=== PATIENT | female | born 1955 | race Caucasian/White ===

== ENCOUNTER → 2016-12-07 | Outpatient (CLI) | payer OTHER ==
[~2016-12-07] MED LIST: AUGMENTIN 875-875 MG PO; BP PILL; CORTISPORIN SUS10 ML OT; LUNESTA3 M1 PO; MOBIC7.5 MG PO; NEURONTIN300 MG PO; PAXIL40 M1 PO; PRILOSEC20 M1 PO; ZOFRAN4 MG PO
== END | disposition home or self-care (01) ==
LOC: MRI 09:37
DX: I99.8 Other disorder of circulatory system (principal)

== ENCOUNTER 2017-12-12 14:26 | Emergency (ER) | payer OTHER ==
[~2017-12-12] VITALS: Ht 152.4 cm; Wt 71.7 kg
[2017-12-12 14:59] LABS: BASO # 0.1 10*3/uL (0.0-0.1); BASO % 0.6 % (0.0-1.0); EOS # 0.1 10*3/uL (0.0-0.4); HEMATOCRIT 38.6 % (37.0-47.0); HEMOGLOBIN 13.2 g/dl (12.0-16.0); LYMPH # 2.2 10*3/uL (1.3-4.4); LYMPH % 22.5 % (27.0-41.0); MEAN CELL VOLUME 85.4 fl (81.0-99.0); MEAN CORPUSCULAR HGB 29.2 pg (27.0-31.0); MEAN CORPUSCULAR HGB CONC 34.2 g/dl (33.0-37.0); MEAN PLATELET VOLUME 11.1 fl (9.6-12.3); MONO # 0.5 10*3/uL (0.1-1.0); MONO % 5.1 % (3.0-9.0); NEUT # 6.9 10*3/uL (2.3-7.9); NEUT % 70.3 % (47.0-73.0); PLATELET COUNT AUTOMATED 280 10*3/uL (130-400); RED BLOOD COUNT 4.52 10*6/uL (4.10-5.10); RED CELL DISTRI WIDTH 12.7 % (0-14.5); WHITE BLOOD COUNT 9.8 10*3/uL (4.8-10.8)
[2017-12-12 15:15] LABS: ALBUMIN 3.8 gm/dl (3.1-4.5); ALKALINE PHOSPHATASE 77 U/L (45-117); BUN 14 mg/dl (7-24); CHLORIDE 104 mmol/L (98-107); CREATININE 0.88 mg/dL (0.55-1.02); LIPASE 223 U/L (73-393); POTASSIUM 3.8 mmol/L (3.5-5.1); SGOT/AST 18 IU/L (3-35); SGPT/ALT 23 U/L (12-78); SODIUM 142 mmol/L (136-145); TOTAL PROTEIN 7.4 gm/dL (6.4-8.2)
[2017-12-12 15:22] LABS: BILIRUBIN NEGATIVE (NEGATIVE); BLOOD NEGATIVE (NEGATIVE); CLARITY CLEAR (CLEAR); COLOR YELLOW (YELLOW); GLUCOSE NEGATIVE (NEGATIVE); KETONE 2+ (NEGATIVE); LEUKO ESTERASE 1+ (NEGATIVE); NITRITE NEGATIVE (NEGATIVE); SPECIFIC GRAVITY <= 1.005 (1.005-1.030); UROBILINOGEN 0.2 E.U./dl (0.2-1.0)
[2017-12-12 15:30] LABS: BACTERIA TRACE
[2017-12-12] MEDS ORDERED: KETOROLAC10 MG PO (17:39)
== END 2017-12-12 17:53 | disposition home or self-care (01) ==
LOC: ED 14:26
PROVIDERS: Nurse Practitioner Family
DX: R10.9 Unspecified abdominal pain (principal); R10.2 Pelvic and perineal pain; M54.5 Low back pain; Z79.899 Other long term (current) drug therapy

== ENCOUNTER 2018-03-20 16:30 | Emergency (ER) | payer OTHER ==
[~2018-03-20] VITALS: Ht 152.4 cm; Wt 68.0 kg
[~2018-03-20 16:30] MED LIST changes: +KETOROLAC10 MG PO
[2018-03-20] MEDS ORDERED: NAPROSYN500 MG PO (18:55)
== END 2018-03-20 18:48 | disposition home or self-care (01) ==
LOC: ED 16:30
DX: S93.401A Sprain of unspecified ligament of right ankle, initial encounter (principal); Z79.899 Other long term (current) drug therapy; W18.09XA Striking against other object with subsequent fall, initial encounter; Y93.89 Activity, other specified; Y92.89 Other specified places as the place of occurrence of the external cause; Y99.8 Other external cause status

== ENCOUNTER 2018-06-02 20:13 | Emergency (ER) | payer OTHER ==
[~2018-06-02] VITALS: Ht 152.4 cm; Wt 70.3 kg
[~2018-06-02 20:13] MED LIST changes: +NAPROSYN500 MG PO
[2018-06-02] MEDS ORDERED: AUGMENTIN 875875 MG PO (20:44)
== END 2018-06-02 20:57 | disposition home or self-care (01) ==
LOC: ED 20:13
DX: S61.451A Open bite of right hand, initial encounter (principal); S61.552A Open bite of left wrist, initial encounter; Z23 Encounter for immunization; Z79.899 Other long term (current) drug therapy; W54.0XXA Bitten by dog, initial encounter; W55.01XA Bitten by cat, initial encounter; Y93.89 Activity, other specified; Y92.89 Other specified places as the place of occurrence of the external cause; Y99.8 Other external cause status

== ENCOUNTER → 2021-01-29 | Outpatient (CLI) | payer MEDICARE, OTHER ==
[~2021-01-29] MED LIST changes: +AUGMENTIN 875875 MG PO
[2021-01-29 11:11] LABS: BUN 14 mg/dl (7-24)
== END | disposition home or self-care (01) ==
LOC: LAB 10:47 → MRI 11:00
PROVIDERS: ATTEND Psychiatry & Neurology Neurology
DX: I67.82 Cerebral ischemia (principal); J32.8 Other chronic sinusitis; R90.82 White matter disease, unspecified

== ENCOUNTER 2021-10-31 12:47 | Emergency (ER) | payer MEDICARE, OTHER ==
[~2021-10-31] VITALS: Ht 152.4 cm; Wt 61.7 kg
[2021-11-04] MEDS ORDERED: HYZAAR 50-12.51 EACH PO (15:55)
[2021-11-04] MEDS ORDERED: LIPITOR20 MG PO (15:55)
[2021-11-04] MEDS ORDERED: METFORMIN HYD1000 MG PO (15:56)
[2021-11-04] MEDS ORDERED: PANTOPRAZOLE SO40 MG PO (15:56)
[2021-11-04] MEDS ORDERED: BACLOFEN5 MG PO (15:56)
[2021-11-04] MEDS ORDERED: ADVAIR HFA 230-12 GM INH (15:57)
[2021-11-04] MEDS ORDERED: CYMBALTA60 MG PO (15:58)
== END 2021-10-31 15:50 | disposition left against medical advice (07) ==
LOC: ED 12:47
DX: Z53.21 Procedure and treatment not carried out due to patient leaving prior to being seen by health care provider (principal)

== ENCOUNTER → 2023-05-18 | Day surgery (SDC) | payer MEDICARE, OTHER ==
[~2023-05-18] VITALS: Ht 152.4 cm; Wt 60.8 kg
[~2023-05-18] MED LIST changes: +ADVAIR HFA 230-12 GM INH; +AMOXICILLIN875 MG PO; +ASPIRIN ADULT L81 M1 PO; +BACLOFEN5 MG PO; +CLOPIDOGREL75 MG PO; +CYMBALTA60 MG PO; +HYDROCODONE-AC1 EAC1 PO; +HYZAAR 50-12.51 EACH PO; +LIPITOR20 MG PO; +LISINOPRIL5 MG PO; +METFORMIN HYD1000 MG PO; +METOPROLOL SUCC25 M2 PO; +OMNICEF300 MG PO; +PANTOPRAZOLE SO40 MG PO; +PREDNISONE10 MG PO; +SEPTDS PO; +VITAMIN D325 MCG PO; +ZITHROMAX250 MG PO
[2023-05-18 11:07] VITALS: BP 123/72
[2023-05-18 11:28] LABS: BUN 15 mg/dl (9-23); CHLORIDE 105 mmol/L (98-107); POTASSIUM 3.9 mmol/L (3.4-5.1)
[2023-05-18 11:43] VITALS: BP 163/73
[2023-05-18 11:58] VITALS: BP 166/78
[2023-05-18 12:13] VITALS: BP 161/71
[2023-05-19 10:07] LABS: ACID FAST SPEC PROCESSING Tissue Grinding (.)
== END | disposition home or self-care (01) ==
LOC: SDC 09:30
PROVIDERS: ATTEND Orthopaedic Surgery
DX: S62.663A Nondisplaced fracture of distal phalanx of left middle finger, initial encounter for closed fracture (principal); I10 Essential (primary) hypertension; M81.0 Age-related osteoporosis without current pathological fracture; K21.9 Gastro-esophageal reflux disease without esophagitis; E11.40 Type 2 diabetes mellitus with diabetic neuropathy, unspecified; Z86.73 Personal history of transient ischemic attack (TIA), and cerebral infarction without residual deficits; E03.9 Hypothyroidism, unspecified; E78.5 Hyperlipidemia, unspecified; W55.51XA Bitten by raccoon, initial encounter; Z79.899 Other long term (current) drug therapy; Y93.89 Activity, other specified; Y92.89 Other specified places as the place of occurrence of the external cause; Y99.8 Other external cause status; J45.909 Unspecified asthma, uncomplicated; Z90.49 Acquired absence of other specified parts of digestive tract

== ENCOUNTER → 2023-05-22 | Outpatient (CLI) | payer MEDICARE, OTHER | END | disposition home or self-care (01) | LOC: RAD 08:47 | PROVIDERS: ATTEND Orthopaedic Surgery | DX: S62.663B Nondisplaced fracture of distal phalanx of left middle finger, initial encounter for open fracture (principal); X58.XXXA Exposure to other specified factors, initial encounter; Y93.89 Activity, other specified; Y92.89 Other specified places as the place of occurrence of the external cause; Y99.8 Other external cause status ==

== ENCOUNTER → 2023-07-24 | Outpatient (CLI) | payer MEDICARE, OTHER | END | disposition home or self-care (01) | LOC: ORTHO 01:12 | PROVIDERS: ATTEND Orthopaedic Surgery | DX: S62.663B Nondisplaced fracture of distal phalanx of left middle finger, initial encounter for open fracture (principal); S62.633A Displaced fracture of distal phalanx of left middle finger, initial encounter for closed fracture; X58.XXXA Exposure to other specified factors, initial encounter; Y93.89 Activity, other specified; Y92.89 Other specified places as the place of occurrence of the external cause; Y99.8 Other external cause status ==

== ENCOUNTER → 2023-11-08 | Outpatient (CLI) | payer MEDICARE, OTHER | END | disposition home or self-care (01) | LOC: ORTHO 04:02 | PROVIDERS: ATTEND Orthopaedic Surgery | DX: S62.663B Nondisplaced fracture of distal phalanx of left middle finger, initial encounter for open fracture (principal); M19.042 Primary osteoarthritis, left hand; X58.XXXA Exposure to other specified factors, initial encounter; Y93.89 Activity, other specified; Y92.89 Other specified places as the place of occurrence of the external cause; Y99.8 Other external cause status ==

== ENCOUNTER → 2023-12-21 | Outpatient (CLI) | payer MEDICARE, OTHER ==
[~2023-12-21] MED LIST changes: +Albuterol Sulfate 2.5 MG/3 ML VIAL NEB ONE
== END | disposition home or self-care (01) ==
LOC: LAB 10:07 → CP 10:30
PROVIDERS: ATTEND Physical Medicine & Rehabilitation Sports Medicine
DX: J44.89 Other specified chronic obstructive pulmonary disease (principal)

== ENCOUNTER → 2024-01-31 | Outpatient (CLI) | payer MEDICARE, OTHER ==
[~2024-01-31] MED LIST changes: -Albuterol Sulfate 2.5 MG/3 ML VIAL NEB ONE; +CELECOXIB200 MG PO; +IPRATROPIUM BRO30 ML NAS; +PEPCID AC20 MG PO; +Regadenoson 0.4 MG/5 ML SYR IV ONE; +SINGULAIR10 M1 PO; +TRAZODONE50 MG PO; +Technetium Tc 99M Tetrofosmi 0.23 MG KIT IJ SCH; +VENT7GM INH
== END | disposition home or self-care (01) ==
LOC: CARD 01:37
PROVIDERS: ATTEND Internal Medicine
DX: R06.02 Shortness of breath (principal)

== ENCOUNTER → 2024-05-08 | Outpatient (CLI) | payer MEDICARE, OTHER ==
[~2024-05-08] MED LIST changes: -Regadenoson 0.4 MG/5 ML SYR IV ONE; -Technetium Tc 99M Tetrofosmi 0.23 MG KIT IJ SCH
== END | disposition home or self-care (01) ==
LOC: ORTHO 02:11
PROVIDERS: ATTEND Orthopaedic Surgery
DX: S62.663D Nondisplaced fracture of distal phalanx of left middle finger, subsequent encounter for fracture with routine healing (principal); Y92.89 Other specified places as the place of occurrence of the external cause; X58.XXXD Exposure to other specified factors, subsequent encounter

== ENCOUNTER → 2024-06-18 | Outpatient (CLI) | payer MEDICARE, OTHER | END | disposition home or self-care (01) | LOC: MRI 10:39 | PROVIDERS: ATTEND Psychiatry & Neurology Neurology | DX: G93.89 Other specified disorders of brain (principal); I67.89 Other cerebrovascular disease; I10 Essential (primary) hypertension ==

== ENCOUNTER → 2024-09-04 | Outpatient (CLI) | payer MEDICARE, OTHER | END | disposition home or self-care (01) | LOC: ORTHO 04:31 | PROVIDERS: ATTEND Orthopaedic Surgery | DX: M19.012 Primary osteoarthritis, left shoulder (principal); M47.814 Spondylosis without myelopathy or radiculopathy, thoracic region; M25.512 Pain in left shoulder ==

== ENCOUNTER → 2024-10-21 | Outpatient (CLI) | payer MEDICARE, OTHER | END | disposition home or self-care (01) | LOC: MRI 12:40 | PROVIDERS: ATTEND Orthopaedic Surgery | DX: M75.102 Unspecified rotator cuff tear or rupture of left shoulder, not specified as traumatic (principal) ==

== ENCOUNTER → 2024-11-04 | Outpatient (CLI) | payer MEDICARE, OTHER | END | disposition home or self-care (01) | LOC: RAD 11-01 10:00 | PROVIDERS: ATTEND Orthopaedic Surgery | DX: Z13.820 Encounter for screening for osteoporosis (principal); M85.80 Other specified disorders of bone density and structure, unspecified site; N95.9 Unspecified menopausal and perimenopausal disorder ==

== ENCOUNTER → 2025-01-01 | Outpatient (CLI) | payer MEDICARE, OTHER ==
[~2025-01-01] MED LIST changes: +Zoledronic Acid 100 ML IV ONE
[2025-01-01 08:30] VITALS: BP 136/71
== END | disposition home or self-care (01) ==
LOC: IV THERAPY 08:23
PROVIDERS: ATTEND Orthopaedic Surgery
DX: M81.0 Age-related osteoporosis without current pathological fracture (principal); J45.909 Unspecified asthma, uncomplicated; K21.9 Gastro-esophageal reflux disease without esophagitis; I10 Essential (primary) hypertension; E11.40 Type 2 diabetes mellitus with diabetic neuropathy, unspecified; E03.9 Hypothyroidism, unspecified; E78.5 Hyperlipidemia, unspecified; Z86.73 Personal history of transient ischemic attack (TIA), and cerebral infarction without residual deficits; Z86.16 Personal history of COVID-19; Z87.891 Personal history of nicotine dependence